=== PATIENT | male | born 2000 | race Caucasian/White ===

== ENCOUNTER 2019-05-10 15:33 | Emergency (ER) | payer OTHER, SELFPAY ==
[2019-05-10 15:35] VITALS: BP 158/95; PULSE 115; RESP 16; TEMP 36.6; O2SAT 99; BMI 37.8
--- NOTE | 2019-05-10 15:45 | EKG12_ITS ---
Test Reason : SYNCOPE Blood Pressure : / mmHG Vent. Rate : 089 BPM Atrial Rate : 089 BPM P-R Int : 136 ms QRS Dur : 082 ms QT Int : 322 ms P-R-T Axes : 070 017 034 degrees QTc Int : 391 ms Normal sinus rhythm Normal ECG Confirmed by EVARISTO JEROME ([id number]), newspaper editor MANISHA ESCUDERO ([id number]) on 05/16/2019 9:42:21 AM Referred By: YELITZA Confirmed By:EVARISTO JEROME
--- NOTE | 2019-05-10 15:46 | NURSING ---
NO OLD EKGS
--- NOTE | 2019-05-10 15:57 | ED.DCSUM_ITS ---
- ER Visit Summary Date of Service: 05/10/19 Chief Complaint: Syncope versus seizure History of Present Illness: The patient is a 18 M who tells me he had a seizure today at work. He was not doing anything strenuous when he felt faint and then hit his face on the ground. He woke up laying on the ground and noticed that his tooth was chipped. He had no chest pain or shortness of breath. Nobody witnessed this. He tells me he has a history of seizures but he takes no medications for this at home. He has not seen a neurologist in the past. He currently feels back to baseline except for some pain in his mouth where his tooth is chipped. Physical Examination: Vital signs reviewed. HEENT exam reveals a dental avulsion at tooth #8. Otherwise there is no tongue trauma. Heart is regular rate and rhythm without murmurs. Lungs are clear to auscultation. Abdomen is soft and nontender. Extremities reveal no edema. Skin exam normal. Neurologic exam normal. GCS is currently 15. Test Results: EKG is a sinus rhythm with rate of 89. No ST changes. Labs are normal. Emergency Department Course and Treatment: I feel the patient likely had a syncopal episode rather than a seizure. Nobody witnessed any tonic-clonic like seizures. From his description it sounds like he fainted. He does have a dental avulsion that will need to be followed up with a dentist. I will give him a list of dental clinics. I will give him the number of a primary care physician he can follow-up with as well. He was encouraged to increase his hydration at home. Treatment Plan: [] Disposition: Discharge Impression: Syncope, dental avulsion This note was generated with Clickt[employer] dictation software. It may contain incorrect words, spelling, and punctuation that were not noted in review of the chart prior to signing
[2019-05-10 16:31] LABS: Absolute Lymphocyte Count 1.53 X10^3/uL (0.83-4.51); Absolute Neutrophil Count 7.3 X10^3/uL (2.0-7.7); Basophil# 0.04 X10^3/uL; Basophil% 0.4 % (0-1); Eosinophil# 0.06 X10^3/uL; Eosinophils% 0.6 % (0-5); Hematocrit 43.5 % (40-54); Hemoglobin 15.9 g/dL (13.0-16.5); Lymphocyte # 1.53 X10^3/ul (4.0); Lymphocyte % 16.1 % (19-41); Mean Corp Hgb Conc 36.6 g/dL (32-36); Mean Corpuscular Hgb 31.9 pg (27.0-32.0); Mean Corpuscular Volume 87.2 fL (80-94); Mean Platelet Vol. 8.8 fl (6.2-12.0); Monocyte# 0.58 X10^3/uL; Monocyte% 6.1 % (0-10); NRBC Flagged by Analyzer 0 % (0-5); Neutrophil # 7.26 X10^3/uL (2.7-7.7); Neutrophil % 76.5 % (47-70); Platelet Count 189 K/mm3 (150-450); RBC Distribution Width CV 11.2 % (11.6-14.6); RBC Distribution Width SD 35.7 fl (35.1-43.9); Red Blood Count 4.99 M/mm3 (4.6-6.2); White Blood Count 9.5 K/mm3 (4.4-11.0)
[2019-05-10 16:49] LABS: Anion Gap 4 (5-15); BUN 22 mg/dL (7-18); BUN/Creat Ratio 18.3 RATIO (10-20); Calcium,Total 8.8 mg/dL (8.5-10.1); Chloride 107 mmol/L (98-107); EST Glomerular Filtration Rate 81 mL/min (>60); Est Glom Filt Rate - Afr Amer 98 mL/min (>60); Estimated Creatinine Clearance 69.44 ml/min; Glucose 97 mg/dL (74-106); Potassium 3.8 mmol/L (3.5-5.1); Sodium Level 140 mmol/L (136-145)
--- NOTE | 2019-05-10 16:58 | ED.DEP ---
ED Disposition - Plan for ED Patient: Disposition: Home or Assisted Living Instructions: SYNCOPE, Unk Cause Referrals: Care Physician,No Primary [Primary Care Provider] - Dom Yusuf MD [STAFF PHYSICIAN] -
[2019-05-10 17:21] VITALS: BP 130/87; PULSE 71; RESP 16; O2SAT 98
== END 2019-05-10 17:22 | disposition home or self-care (01) ==
PROVIDERS: Emergency Provider Emergency Medicine
DX: R55 Syncope and collapse (principal); S02.5XXA Fracture of tooth (traumatic), initial encounter for closed fracture; W19.XXXA Unspecified fall, initial encounter; Y93.9 Activity, unspecified; Y92.9 Unspecified place or not applicable
CPT/HCPCS: 80048; 85025; 93005; 99283; A4216

== ENCOUNTER → 2019-05-29 09:28 | Outpatient (CLI) | payer OTHER, SELFPAY ==
[2019-05-10 15:35] VITALS: BMI 37.8
--- NOTE | 2019-05-30 10:17 | EEG_ITS ---
- Electroencephalogram Date of service 05/29/2019 This is an 18 channel electroencephalogram performed utilizing the International 10-20 electrode placement protocol as well as photic stimulation, hyperventilation and EKG reference leads on this 18-year-old male with a history of spells associated with tongue biting. Background activity is 10 Hz symmetrically in the posterior leads which attenuates with eye opening. Hyperventilation is performed for 5 minutes with no lateralizing or epileptiform changes and the post hyperventilatory phase is unremarkable. Photic stimulation demonstrates a normal symmetric driving response in the posterior leads and EKG is normal sinus rhythm throughout the recording. Patient remained awake throughout the recording without lateralizing or epileptiform changes. Impression: Normal awake electroencephalogram. Dictated using [employer] software, not proofread
== END ==
PROVIDERS: Family Provider Family Medicine; PCP Family Medicine; Referring Provider Family Medicine; Visit Provider Family Medicine
DX: R56.9 Unspecified convulsions (principal)
CPT/HCPCS: 95819

== ENCOUNTER → 2019-06-19 12:05 | Outpatient (CLI) | payer OTHER, SELFPAY ==
[2019-06-19 12:07] LABS: Bacteria 0 SEEN /hpf (None Seen); Mucous, Urine 0 SEEN /hpf (<or=2+); Red Blood Cells-Urine 0 SEEN /hpf (0-5); Squamous Epithelial Cells - UA 0 SEEN /hpf (0-5); White Blood Cells 0 SEEN /hpf (0-5)
[2019-06-19 13:53] LABS: Color, Urine Yellow (Yellow); Glucose, Dipstick Normal (Normal); Ketone-Dipstick Negative (Negative); Leukocyte Esterase-Dipstick Negative /ul (Negative); Nitrite-Dipstick Negative (Negative); Occult Blood-Urine Negative /ul (Negative); Protein-Dipstick Negative (Negative); Specific Gravity, Urine 1.005 (1.002-1.030); Urine Bilirubin Dipstick Negative (Negative); Urine Clarity Clear (Clear); Urine Urobilinogen Normal (Normal)
[2019-06-19 14:06] LABS: Osmolality, Serum 293 mOsm/KG (275-295)
[2019-06-19 14:09] LABS: Osmolality, Urine 344 mOsm/KG
[2019-06-19 14:16] LABS: Anion Gap 7 (5-15); BUN 12 mg/dL (7-18); Calcium,Total 9.1 mg/dL (8.5-10.1); Chloride 108 mmol/L (98-107); Creatinine, Serum 1.09 mg/dL (0.70-1.30); EST Glomerular Filtration Rate 91 mL/min (>60); Est Glom Filt Rate - Afr Amer 110 mL/min (>60); Glucose 85 mg/dL (74-106); Potassium 4.3 mmol/L (3.5-5.1); Sodium Level 144 mmol/L (136-145)
== END ==
PROVIDERS: Family Provider Family Medicine; PCP Family Medicine; Visit Provider Family Medicine
DX: R35.8 Other polyuria (principal)
CPT/HCPCS: 36415; 80048; 81001; 83930; 83935

== ENCOUNTER 2019-09-15 23:42 | Observation (INO) | payer OTHER, SELFPAY ==
[2019-09-15 23:45] VITALS: BP 144/70; PULSE 94; RESP 16; TEMP 37.2; O2SAT 98; BMI 31.8
[2019-09-15 23:48] VITALS: PULSE 94
[2019-09-16] VITALS (10 sets, daily range): BP systolic 104–145; BP diastolic 55–76; PULSE 54–91; RESP 14–18; TEMP 36.3–36.8; O2SAT 96–100; BMI 31.2; BMI 31.3
--- NOTE | 2019-09-16 00:27 | EKG12_ITS ---
Test Reason : SEIZURE Blood Pressure : / mmHG Vent. Rate : 076 BPM Atrial Rate : 076 BPM P-R Int : 156 ms QRS Dur : 084 ms QT Int : 344 ms P-R-T Axes : 063 033 027 degrees QTc Int : 387 ms Normal sinus rhythm Nonspecific ST abnormality Abnormal ECG Confirmed by MARC YEUNG, AL ([id number]), dictionary editor TRISH FUENTES ([id number]) on 09/18/2019 12:56:13 PM Referred By: MR Confirmed By:AL TRAN MD
--- NOTE | 2019-09-16 00:27 | CT_ITS ---
STUDY: CT BRAIN WITHOUT CONTRAST REASON FOR EXAM: Male, 19 years old with seizure. Patient shielded RADIATION DOSAGE (If Supplied By Facility): CTDIvol = ( 44.99 ) mGy, DLP = ( 880.47 ) mGycm TECHNIQUE: Transaxial CT imaging of the brain was performed without administration of intravenous contrast material. Multiplanar reformations are submitted for interpretation. Individualized dose optimization techniques were used for this CT. COMPARISON: No relevant priors. FINDINGS: Normal soft tissue structures. Normal calvarium. Normal size ventricles and extra-axial spaces for the patient''s age. Normal white matter tracts of the cerebral hemispheres. Normal basal ganglia and thalami. Normal brainstem. Normal cerebellum. There is no intracranial hemorrhage. There are no findings of an acute ischemic infarction. Normal visualized paranasal sinuses. CT/Brain/Head without Contrast IMPRESSION: No CT evidence of acute intracranial hemorrhage. Electronically Signed: Milena Yusuf MD at 2:31 EST , Service support ,
[2019-09-16 00:46] LABS: Basophil# 0.03 X10^3/uL; Basophil% 0.5 % (0-1); Eosinophil# 0.15 X10^3/uL; Eosinophils% 2.6 % (0-5); Hematocrit 43.8 % (40-54); Hemoglobin 15.2 g/dL (13.0-16.5); Lymphocyte % 37.4 % (19-41); Mean Corp Hgb Conc 34.7 g/dL (32-36); Mean Corpuscular Hgb 31.1 pg (27.0-32.0); Mean Corpuscular Volume 89.6 fL (80-94); Monocyte# 0.52 X10^3/uL; Monocyte% 8.8 % (0-10); NRBC Flagged by Analyzer 0 % (0-5); Neutrophil # 2.96 X10^3/uL (2.7-7.7); Neutrophil % 50.4 % (47-70); Platelet Count 196 K/mm3 (150-450); RBC Distribution Width CV 11.9 % (11.6-14.6); RBC Distribution Width SD 38.7 fl (35.1-43.9); Red Blood Count 4.89 M/mm3 (4.6-6.2); White Blood Count 5.9 K/mm3 (4.4-11.0)
[2019-09-16] MEDS: 0.9% Normal Saline 1,000 ML 1000 ML IV (00:47)
--- NOTE | 2019-09-16 00:50 | RAD_ITS ---
STUDY: X-RAY CHEST REASON FOR EXAM: Male, 19 years old syncope and seizure. TECHNIQUE: PA and lateral views of the chest. COMPARISON: Prior comparison studies are not available for review at this time. FINDINGS: Cardiac monitoring leads are present. The lungs are clear and expanded. There is no demonstrated pleural abnormality. Normal size heart. Normal mediastinum and claudine. There is prominence of the pulmonary hilar arteries with peripheral pulmonary vascular congestion. Normal visualized aortic arch and descending thoracic aorta. Normal visualized thoracic spine. Normal visualized ribs, clavicles, and shoulders. There is no demonstrated abnormality of the visualized soft tissue structures of the upper abdomen. RAD/Chest PA and Lateral IMPRESSION: No radiographic evidence of acute cardiopulmonary disease. Electronically Signed: Milena Yusuf MD at 2:01 EST , Service support ,
[2019-09-16 00:59] LABS: Anion Gap 7 (5-15); BUN 15 mg/dL (7-18); BUN/Creat Ratio 10.9 RATIO (10-20); Calcium,Total 9.3 mg/dL (8.5-10.1); Chloride 107 mmol/L (98-107); Creatinine, Serum 1.38 mg/dL (0.70-1.30); EST Glomerular Filtration Rate 69 mL/min (>60); Est Glom Filt Rate - Afr Amer 84 mL/min (>60); Estimated Creatinine Clearance 81.92 ml/min; Glucose 98 mg/dL (74-106); Potassium 3.7 mmol/L (3.5-5.1); Sodium Level 143 mmol/L (136-145)
[2019-09-16 01:46] LABS: Lactic Acid 2.1 mmol/L (0.4-1.9)
--- NOTE | 2019-09-16 03:22 | PCM.HP.STD ---
Problem List (1) Seizure Status: Acute History of Present Illness Date of Admission: 09/16/19 Chief Complaint: seizure The patient is a 19 year old M who presented to emergency department because of acute tonic clonic movements of his extremities. He was bowling. He reported that before the tonic-clonic activity he felt like his brain paused. He fell onto a table and sustained abrasions on his neck. He bit his left tongue. The episode lasted for about 10 minutes. He denies any bowel or bladder incontinence. In March to April 2019 he had a one-time episode similar to the above. At that time he came to the hospital and follow-up with a neurologist. Reportedly it was thought that his symptoms was secondary to dehydration. He was not put on any seizure medication outpatient. Past Medical History Medical History: Medical History (Last Updated 09/16/19 @ 06:14 by Julio Hicks MD) Denies previous medical history (Chronic) Allergies No Known Allergies Allergy (Verified 09/15/19 23:51) Home Medications: Ambulatory Orders Medication Instructions Recorded NK 05/10/19 Surgical History: no surgical history Lives: Roommate Smoking Status: Former smoker Alcohol: Occasional - *Family History Paternal History Items: - - Patient's father who was present denied any medical history on his side Maternal History Items: Diabetes, Seizures Review of Systems Constitutional: Denies: Chills, Fever, Weight Change HEENT: Denies: Head Aches, Sinus Congestion, Sinus Drainage Cardiovascular: Denies: Chest Pain, Palpitations Respiratory: Denies: Cough, Shortness of breath at rest, Sputum production Gastrointestinal: Denies: Abdominal Pain, Nausea, Vomiting Genitourinary: Denies: Dysuria Musculoskeletal: Denies: Joint Pain, Joint Tenderness Skin: Denies: Rash, Wounds Neurological: Reports: Seizures. Denies: Focal weakness, Numbness, Tingling Psychiatric: Denies: Anxiety, Depression, Homicidal Ideations, Suicidal Ideations Hematologic/ Lymphatic: Denies: Easy Bruising, Easy Bleeding VTE Information - Inpt Only VTE Present on Admission: No VTE Mechan Device Prophylaxis: None VTE Pharm Prophylaxis ordered?: No Reason prophylaxis not ordered:: Treatment Not Indicated - Low risk ambulate Patient Problems: Active and Suspected Problems Seizure (Acute) - Physical Exam Vitals/I&O's: Vital Signs Temp Pulse Resp BP Pulse Ox 98.9 F 72 14 145/76 H 100 09/15/19 23:45 09/16/19 01:38 09/16/19 01:38 09/16/19 01:38 09/16/19 01:38 Oxygen Delivery Method Room Air Weight: 94.9 kg Body Mass Index (BMI) 31.8 Intake and Output for Last 24 Hours 09/14/19 09/15/19 09/16/19 23:59 23:59 23:59 Intake Total 1000 / 1000 Balance 1000 / 1000 General: Alert, Oriented x3, Cooperative HEENT: Atraumatic, PERRLA, EOMI, Normocephalic, - Oral: Ulcerations Present - Left side of tongue, - Neck: Supple, No JVD, Negative Carotid Bruits Lungs: Clear to auscultation, Normal air movement Cardiovascular: Regular rate, No murmurs Abdomen: Bowel Sounds Present, Soft, Non Tender Extremities: No edema, Capillary Refill Less than 3 Seconds Skin: - - Abrasions on neck Musculoskeletal: No Tenderness to Palpation of Joints or Extremities Neurological: Cranial nerves II-XII grossly intact Psych/Mental Status: Normal Affect, Appropriate Laboratory Results 09/15/19 00:00: WBC 5.9, RBC 4.89, Hgb 15.2, Hct 43.8, MCV 89.6, MCH 31.1, MCHC 34.7, RDW Std Deviation 38.7, RDW Coeff of Nigel 11.9, Plt Count 196, MPV 9.0, Immature Gran % (Auto) 0.300, Neut % (Auto) 50.4, Lymph % (Auto) 37.4, Pennington % (Auto) 8.8, Eos % (Auto) 2.6, Baso % (Auto) 0.5, Absolute Neuts (auto) 3.0, Absolute Lymphs (auto) 2.20, Nucleated RBC % 0 09/15/19 00:00: Sodium 143, Potassium 3.7, Chloride 107, Carbon Dioxide 29.0, Anion Gap 7, BUN 15, Creatinine 1.38 H, Estim Creat Clear Calc 81.92, Est GFR (MDRD) Af Amer 84, Est GFR (MDRD) Non-Af 69, BUN/Creatinine Ratio 10.9, Glucose 98, Calcium 9.3, Troponin I < 0.015 01/04/20 00:46: Lactic Acid 2.1 H* Assessment/Plan All Active Problems Seizure (Acute) The patient is a 19 year old M who presented to emergency department because of acute tonic clonic movements of his extremities with biting of tongue reminiscent of previous same activity concerning for probable epilepsy with acute seizure. Epilepsy of acute seizure Brain CT at the ED did not show any acute intracranial hemorrhage. We will get an MRI of the brain. Will start patient on Keppra IV. Get EEG. Consider neurology consult. Seizure Precautions. Counseled. DVT prophylaxis Low risk Ambulate Code Visit OBSV E&M: 45530 Initial observation care L2
--- NOTE | 2019-09-16 03:43 | ED.VIS.GEN ---
History of Present Illness Chief Complaint: Seizure Narrative: Patient presenting for evaluation secondary to a possible seizure. Patient apparently had an episode back in March where he had a passing out episode that was indeterminate whether it was convulsive or syncopal. He had a work-up in May that included a EEG by neurology and was thought to not have any sort of seizure type activity. Tonight the patient was bowling, he did not have any sort of specific inciting event. He states that it was not after going from sitting to standing, and was not associated with any chest pain palpitations shortness of breath or lightheadedness. Patient states that he felt as if his brain paused and then he was noticed to have a witnessed seizure event. Patient did not lose any continence of his bowel or bladder. Patient denies any pain. He denies any symptoms currently. He denies recent infectious signs or symptoms such as fever cough nausea vomiting or diarrhea. Patient denies that there is any prodromal auras or abnormal tastes. Patient does not take any [id number] medications and denies any drug use. Review of systems otherwise negative. Past Medical History - Allergies and Home Meds Allergies/Adverse Reactions: Allergies No Known Allergies Allergy (Verified 09/15/19 23:51) Primary Care Physician: Dom Umanzor MD [Primary Care Provider] - Past Medical History: None Smoking Status: Former smoker Review of Systems All systems negative except as indicated General: Denies: Chills, Fever, Sweats Eyes: Denies: Visual changes - bilaterally, Diplopia ENT: Denies: Rhinorrhea, Sore throat Cardiovascular: Denies: Chest pain, Palpitations Respiratory: Denies: Dyspnea, Cough, Dyspnea on exertion Gastrointestinal: Denies: Abdominal pain, Nausea, Vomiting, Diarrhea, Melena, Hematochezia Genitourinary: Denies: Dysuria, Hematuria, Frequency Musculoskeletal: Denies: Back pain, Extremity Pain Skin: Denies: Rash, Wounds Neurological: Reports: - - Seizure Physical Exam Vital Signs/Narrative: Vital Signs Temp Pulse Resp BP Pulse Ox 09/16/19 03:00 59 L 16 130/72 H 98 09/16/19 01:38 72 14 145/76 H 100 09/15/19 23:48 94 09/15/19 23:45 98.9 F 94 16 144/70 H 98 Inital Vital Signs reviewed: Yes General: Well nourished, Well developed, No Acute Distress Head: Normocephalic, Atraumatic Eyes: Perrl, EOMI ENT: Moist mucous membranes, No rhinorrhea Neck: - - Ecchymosis noted over the left anterior portion of the patient's neck with no evidence of stridor or carotid bruit. No evidence of expanding or underlying hematoma. Cardiovascular: Regular rate, Regular rhythm, No murmurs Respiratory: No distress, CTA bilaterally, Chest nontender Abdomen: Soft, Nontender, Nondistended, Normal bowel sounds Back: Nontender, Normal Inspection Extremities: Nontender, No edema Skin: Normal color, No rash Neurological: Alert, Oriented x3, Cranial nerves II-XII grossly intact, Normal Strength, Normal Sensation Psychological: Normal affect, Normal Mood Diagnostic/Tx/Re-eval - EKG Initial EKG Interpretation: - - Sinus rhythm at [address] segments normal T waves normal MD and QTc intervals no evidence of acute ischemia or arrhythmia. No evidence of WPW or Brugada morphology. - Medical Decision Making Patient presented with what seemed to be a possible seizure-like episode. There was no prodrome to this, and given its sudden onset I was concerned for the possibility of a seizure. Work-up was obtained on the patient. Lactic acid was found to be elevated which would be indicative of a convulsive event. CT imaging of the brain was negative. No arrhythmias on EKG or telemetry monitoring. Given the fact that the patient's most recent work-up was actually negative, I believe that he would benefit from admission to the hospital for neuroimaging and neurology consultation and likely initiation of anticonvulsants. I discussed this with the hospitalist. ED Disposition - Plan for ED Patient: Disposition: Acute Care Hospital [facility] Diagnosis: Seizure
--- NOTE | 2019-09-16 04:44 | MRI_ITS ---
STUDY: MRI BRAIN WITHOUT CONTRAST REASON FOR EXAM: Male, 19 years old. h/o seizures TECHNIQUE: Standardized multiplanar fat and water weighted pulse sequences were obtained. COMPARISON: CT FINDINGS: Normal size of the ventricles and extra-axial spaces for the patient''s age. Normal white matter tracts of the supratentorial brain. There is no evidence for recent intracranial ischemia or other cause of cytotoxic edema on diffusion weighted imaging (DWI). Normal T2* images of the brain without demonstrated susceptibility artifact. There is no demonstrated hemosiderin stain. Normal bilateral basal ganglia. Normal thalami. There is no extra-axial fluid accumulation. Normal flow voids within the major intracranial circulation suggesting patency by spin echo criteria. Normal sella turcica, pituitary gland, infundibular stalk, optic chiasm and hypothalamus. Normal tectal plate and pineal gland. Normal midbrain, kign and medulla. Normal cerebellum. Normal basal cisterns. Normal bilateral temporal bones. Normal bilateral internal auditory canals. No demonstrated orbital abnormality, within the constraints of a routine brain study. There is mild mucosal thickening of the visualized paranasal sinuses. Normal calvarium and skull base. Normal visualized soft tissue structures. Normal visualized upper cervical spine. MRI/Brain without Contrast IMPRESSION: Normal unenhanced MRI of the brain. Electronically Signed: Lamberto Blanco MD at 15:47 EST , Service support ,
[2019-09-16 04:52] LABS: Reflex Lactate? Y
[2019-09-16] MEDS: 0.9% Normal Saline 1,000 ML 100 ML IV (05:43)
[2019-09-16 06:01] LABS: Lactic Acid 0.9 mmol/L (0.4-1.9)
--- NOTE | 2019-09-16 16:09 | DCINST_ITS ---
- Discharge Diagnoses Current Active Problems: Current Active and Chronic Problems (Last Updated 09/16/19 @ 06:14 by Julio Hicks MD) Seizure (Acute) Denies previous medical history (Chronic) You will use the following diet at home:: No restrictions Your food should be the consistency of: Regular Your liquids should be the consistency of: Regular/Thin Discharge Activity: May Not Drive Return to work on:: 09/20/19 Weight Bearing Status: Full weight bearing Allergies/Adverse Reactions: Allergies No Known Allergies Allergy (Verified 09/15/19 23:51) Medications to take at Discharge levETIRAcetam tablet [Keppra tablet] 500 mg PO BID #60 tab 09/16/19 The following prescriptions were given: levETIRAcetam tablet [Keppra tablet] 500 mg PO BID #60 tab Transmission Status: Pending to [facility] #30 Primary Care Physician: Dom Umanzor MD [Primary Care Provider] - Please follow up with your Primary Care Physician in: Wednesday Test Results: Test results from this visit will be discussed in further detail at your follow- up appointment, if applicable.
--- NOTE | 2019-09-18 15:22 | DS.PCM_ITS ---
Discharge Date and Diagnosis Date of Admission: 09/16/19 Date of Discharge: 09/16/19 - Primary Discharge Diagnosis #1 generalized seizure disorder #2 elevated creatinine-etiology unclear - Secondary Discharge Diagnosis Chronic Problems (Last Updated 09/16/19 @ 06:14 by Julio Hicks MD) Denies previous medical history (Chronic) Hospital Course and Treatment Procedures: Electroencephalogram, - - MRI of the brain Summary of Care Provided: The patient is a 19 year old M seen in the emergency room at [facility] after coming in for evaluation after having what appeared to be generalized seizure activity while at a bowling alley. This was observed by 1 of the patient's friends, patient was groggy for about 10 minutes after the witnessed seizure activity. Work-up in the emergency room included labs which were unremarkable except for a creatinine of 1.38. Brain CT was unremarkable. Patient was placed into observation status on PCU, he underwent an MRI of the brain which showed no abnormality, patient also underwent an EEG-the results of the EEG was not known at this time the patient was discharged on 09/16/2019. Patient was given Keppra during his hospitalization, he was discharged home on the same medication. On 09/16/2019, patient was seen and examined and felt to be in stable condition for discharge home: On examination he appeared in good health and spirits. Vital signs as documented. Skin warm and dry and without overt rashes. Neck without JVD. Lungs clear. Heart exam notable for regular rhythm, normal sounds and absence of murmurs, rubs or gallops. Abdomen unremarkable and without evidence of organomegaly, masses, or abdominal aortic enlargement. Extremities nonedematous. Neuro: Cranial nerves II through XII are grossly intact, no focal motor deficits were noted, sensation to light touch and pinprick intact. Psych: Patient is alert and oriented x3, he does not appear anxious or depressed - Physical Exam Vitals/I&O's: Vital Signs Temp Pulse Resp BP Pulse Ox 98.3 F 91 16 104/55 L 98 09/16/19 16:52 09/16/19 16:52 09/16/19 16:52 09/16/19 16:52 09/16/19 16:52 Oxygen Delivery Method Room Air Weight: 93.3 kg Body Mass Index (BMI) 31.2 Intake and Output for Last 24 Hours 09/16/19 09/17/19 09/18/19 23:59 23:59 23:59 Intake Total 2347.5 / 2347.5 Balance 2347.5 / 2347.5 Discharge Activity: May Not Drive Return to work on:: 09/20/19 Weight Bearing Status: Full weight bearing Home Medications: Medications to take at Discharge levETIRAcetam tablet [Keppra tablet] 500 mg PO BID #60 tab 09/16/19 Following Prescrptions Were Given to Patient: levETIRAcetam tablet [Keppra tablet] 500 mg PO BID #60 tab Transmission Status: Received by [facility] #30 Primary Care Physician: Dom Umanzor MD [Primary Care Provider] - Please follow up with your Primary Care Physician in: Wednesday Disposition: Home Minutes spent on discharge:: 30 Patient Condition:: Stable Medical Necessity - Tobacco Use Smoking Status: Former smoker Meaningful Use Info Meaningful Use Diagnoses (Choose all that apply): None applicable Code Visit OBSV E&M: 78122 Observ/hosp same date L3
== END 2019-09-16 16:21 | disposition home or self-care (01) ==
LOC: ED 09-16 03:07 → PCU 09-16 03:45
PROVIDERS: Admitting Provider Hospitalist; Emergency Provider Emergency Medicine; Family Provider Family Medicine; PCP Family Medicine; Visit Provider Internal Medicine
DX: G40.409 Other generalized epilepsy and epileptic syndromes, not intractable, without status epilepticus (principal); R94.4 Abnormal results of kidney function studies; S10.91XA Abrasion of unspecified part of neck, initial encounter; W18.39XA Other fall on same level, initial encounter; Y93.54 Activity, bowling; Y92.9 Unspecified place or not applicable; Z87.891 Personal history of nicotine dependence
CPT/HCPCS: 36415; 70450; 70551; 71046; 80048; 83605; 84484; 85025; 93005; 95819; 96361; 96374; 99218; 99285; J7030; A4216; G0378

== ENCOUNTER → 2019-09-18 12:32 | Outpatient (CLI) | payer OTHER, SELFPAY ==
[2019-09-16 04:31] VITALS: BMI 31.2
[2019-09-18 14:18] LABS: Anion Gap 5 (5-15); BUN 13 mg/dL (7-18); BUN/Creat Ratio 12.9 RATIO (10-20); Calcium,Total 8.9 mg/dL (8.5-10.1); Chloride 106 mmol/L (98-107); Creatinine, Serum 1.01 mg/dL (0.70-1.30); EST Glomerular Filtration Rate 99 mL/min (>60); Est Glom Filt Rate - Afr Amer 120 mL/min (>60); Glucose 77 mg/dL (74-106); Potassium 3.6 mmol/L (3.5-5.1); Sodium Level 139 mmol/L (136-145)
== END ==
PROVIDERS: Family Provider Family Medicine; PCP Family Medicine; Visit Provider Family Medicine
DX: R79.89 Other specified abnormal findings of blood chemistry (principal)
CPT/HCPCS: 36415; 80048

== ENCOUNTER → 2019-12-18 11:11 | Outpatient (CLI) | payer OTHER, SELFPAY ==
[2019-09-16 04:31] VITALS: BMI 31.2
[2019-12-18 12:15] LABS: Absolute Lymphocyte Count 1.83 X10^3/uL (0.83-4.51); Absolute Neutrophil Count 2.9 X10^3/uL (2.0-7.7); Basophil# 0.04 X10^3/uL; Basophil% 0.8 % (0-1); Eosinophil# 0.11 X10^3/uL; Eosinophils% 2.1 % (0-5); Hemoglobin 16.2 g/dL (13.0-16.5); Lymphocyte # 1.83 X10^3/ul (4.0); Lymphocyte % 35.3 % (19-41); Mean Corp Hgb Conc 35.2 g/dL (32-36); Mean Corpuscular Hgb 30.8 pg (27.0-32.0); Mean Corpuscular Volume 87.5 fL (80-94); Mean Platelet Vol. 9.1 fl (6.2-12.0); Monocyte# 0.32 X10^3/uL; Monocyte% 6.2 % (0-10); NRBC Flagged by Analyzer 0 % (0-5); Neutrophil # 2.86 X10^3/uL (2.7-7.7); Neutrophil % 55.2 % (47-70); Platelet Count 204 K/mm3 (150-450); RBC Distribution Width CV 11.9 % (11.6-14.6); RBC Distribution Width SD 37.9 fl (35.1-43.9); Red Blood Count 5.26 M/mm3 (4.6-6.2); White Blood Count 5.2 K/mm3 (4.4-11.0)
[2019-12-18 15:06] LABS: ALB/GLOB Ratio 1.3 RATIO (0.9-2.4); AST(SGOT) 18 U/L (15-37); Alanine Aminotransfer ALT/SGPT 25 U/L (16-61); Albumin, Serum 4.3 g/dL (3.2-5.0); Alkaline Phosphatase 92 U/L (45-117); Anion Gap 6 (5-15); BUN 14 mg/dL (7-18); Calcium,Total 9.2 mg/dL (8.5-10.1); Chloride 107 mmol/L (98-107); Creatinine, Serum 1.17 mg/dL (0.70-1.30); EST Glomerular Filtration Rate 83 mL/min (>60); Est Glom Filt Rate - Afr Amer 101 mL/min (>60); Globulin 3.3 g/dL (2.2-4.2); Glucose 98 mg/dL (74-106); Potassium 4.1 mmol/L (3.5-5.1); Protein, Total 7.6 g/dL (6.4-8.2); Sodium Level 140 mmol/L (136-145)
== END ==
PROVIDERS: PCP Family Medicine; Referring Provider Family Medicine; Visit Provider Family Medicine
DX: R56.9 Unspecified convulsions (principal)
CPT/HCPCS: 36415; 80053; 82140; 85025

== ENCOUNTER → 2021-01-20 16:22 | Outpatient (CLI) | payer OTHER, SELFPAY ==
[2019-09-16 04:31] VITALS: BMI 31.2
[2021-01-20 17:35] LABS: Hematocrit 45.1 % (40-54); Hemoglobin 15.4 g/dL (13.0-16.5); Mean Corp Hgb Conc 34.1 g/dL (32-36); Mean Corpuscular Hgb 29.9 pg (27.0-32.0); Mean Corpuscular Volume 87.6 fL (80-94); Platelet Count 191 K/mm3 (150-450); RBC Distribution Width CV 11.7 % (11.6-14.6); RBC Distribution Width SD 37.6 fl (35.1-43.9); Red Blood Count 5.15 M/mm3 (4.6-6.2); White Blood Count 8.6 K/mm3 (4.4-11.0)
[2021-01-20 18:03] LABS: Ammonia < 10.0 umol/L (11-32)
[2021-01-20 18:05] LABS: ALB/GLOB Ratio 1.3 RATIO (0.9-2.4); AST(SGOT) 18 U/L (15-37); Alanine Aminotransfer ALT/SGPT 25 U/L (16-61); Albumin, Serum 4.3 g/dL (3.2-5.0); Alkaline Phosphatase 81 U/L (45-117); Anion Gap 5 (5-15); BUN 22 mg/dL (7-18); BUN/Creat Ratio 19.5 RATIO (10-20); Chloride 102 mmol/L (98-107); Creatinine, Serum 1.13 mg/dL (0.70-1.30); EST Glomerular Filtration Rate 86 mL/min (>60); Est Glom Filt Rate - Afr Amer 104 mL/min (>60); Globulin 3.2 g/dL (2.2-4.2); Glucose 81 mg/dL (74-106); Potassium 3.9 mmol/L (3.5-5.1); Protein, Total 7.5 g/dL (6.4-8.2); Sodium Level 139 mmol/L (136-145)
== END ==
LOC: MFPLAB 16:47 → LAB 16:47
PROVIDERS: PCP Family Medicine; Referring Provider Family Medicine; Visit Provider Family Medicine
DX: R56.9 Unspecified convulsions (principal)
CPT/HCPCS: 36415; 80053; 82140; 85027

== ENCOUNTER 2021-10-09 11:02 | Day surgery (SDC) | payer OTHER, SELFPAY ==
[2021-10-09] VITALS (9 sets, daily range): BP systolic 113–172; BP diastolic 67–98; PULSE 71–98; RESP 16; TEMP 36.6–37.2; O2SAT 98–100; BMI 29.1
[2021-10-09] MEDS: Lactated Ringers 1,000 ML 15 ML IV (11:50)
[2021-10-09 12:10] LABS: Partial Thromboplast Time 28.8 Seconds (24.1-36.2)
--- NOTE | 2021-10-09 12:49 | SUR.PREOP ---
pt given update about surgery delay. he denies needs
--- NOTE | 2021-10-09 14:39 | EKG12_ITS ---
Test Reason : Blood Pressure : / mmHG Vent. Rate : 068 BPM Atrial Rate : 068 BPM P-R Int : 176 ms QRS Dur : 084 ms QT Int : 370 ms P-R-T Axes : 069 032 047 degrees QTc Int : 393 ms Normal sinus rhythm Normal ECG When compared with ECG of 16-SEP-2019 00:37, No significant change was found Confirmed by MARC YEUNG, AL ([id number]), offline editor TRISH FUENTES ([id number]) on 10/14/2021 8:52:22 AM Referred By: Alexis Quan Confirmed By:AL TRAN MD
[2021-10-09] MEDS: Cefazolin 2 GM in 0.9% Normal Saline 100 ML IV (14:53)
--- NOTE | 2021-10-09 16:37 | PCM.DC ---
Discharge Instructions Follow Up Care Test Results: Test results from this visit will be discussed in further detail at your follow-up appointment, if applicable. Discharge Plan Admission Attending Provider: Alexis Quan Primary Care Provider: Care Physician,No Primary Instructions Additional Instructions / Restrictions: Follow preprinted instructions from your surgeon's office. Discharge Orders/Prescriptions Prescriptions: Continued levetiracetam 500 MG tablet 500 mg PO DAILY RF: 0 Referrals / Follow Up: Alexis Quan DO [STAFF PHYSICIAN] - Within 2 Weeks Care Physician,No Primary [Primary Care Provider] - Disposition Disposition (needs filled in before D/C Order can be placed): Home, Self Care
--- NOTE | 2021-10-09 16:50 | OP.PCM_ITS ---
Report of Operation Date of Procedure: 10/09/21 Description of Surgical Findings:: Preoperative diagnosis: 1. Left knee anterior cruciate ligament rupture 2. Left knee Posterior medial meniscus RAMP lesion Postoperative diagnosis: 1. Left knee anterior cruciate ligament rupture 2. Left knee Posterior medial meniscus RAMP lesion - healed Procedure: Diagnostic and operative left knee arthroscopy with quadriceps autograft anterior cruciate ligament reconstruction Primary Surgeon: Alexis Quan DO Supervisor Dyer: Staci Blackburn PA-C Anesthesia: General LMA Anesthesiologist: Dr. Filomena Spring CRNA Complications: None apparent Estimated blood loss: 50 cc IV fluids: Per anesthesia record Implants: Arthrex tight rope femoral fixation with ABS button tibial sided fixation Intraoperative findings: Healed posterior medial meniscus ramp lesion Mid substance complete ACL rupture Preoperative indications: This is an otherwise healthy 21-year-old male seen in the outpatient setting diagnosed with a right knee anterior cruciate ligament rupture. He sustained injury playing basketball approximately 2 months ago. MRI confirmed the diagnosis. He rehabbed his knee and regained full motion and excellent strength. He did experience considerable instability and avoidance of specific activities after rehab. Injury to the posterior lateral corner was noted on MRI, but his exam demonstrated stability across the posterior lateral corner. There was also a ramp lesion noted the posterior medial meniscus, which appeared healed on MRI. Operative intervention in the form of left knee anterior cruciate ligament reconstruction was recommended. We discussed graft options. We settled on a quadriceps autograft. The risks, benefits, alternatives to the procedure was reviewed with the patient at length. Risks included but were not limited to bleeding, wound complications, infection, loss of life or limb, need for additional surgery, continued instability, persistent pain, posttraumatic arthritis, stiffness, difficulty returning to sport, risk of anesthesia, DVT or PE, neurovascular injury. Patient expressed understanding his risks and wished to proceed with surgery. Informed consent obtained in the office. Description of procedure: Patient was identified in preoperative holding area by name, medical record number, and date of . The operative extremity was marked. Informed consent confirmed with the patient. All questions were answered to patient satisfaction. At time of his procedure, patient was brought to the operative suite and positioned supine on a standard operating table. All bony prominences were well-padded. General anesthesia was induced and laryngeal mask airway placed. After securing the tube, I placed a well-padded pneumatic tourniquet on the upper thigh of the operative extremity. I first examined the leg under anesthesia. There was a positive pivot shift and Shira. We then positioned the operative extremity in a circumferential arthroscopic leg miguel. A well- leg miguel was placed on the patient's nonoperative thigh. We then dropped the foot of the bed 90 degrees. We then prepped and draped the operative lower extremity in a normal, sterile orthopedic fashion. We performed a timeout with all parties in attendance in agreement with the side, site, operation to be performed. No concerns were voiced and we elected to proceed with surgery. 2 g Ancef was administered for antibiotic prophylaxis prior to the incision by the anesthesia staff. Given the positive provocative findings and positive MRI findings consistent with ACL rupture, I elected to harvest the graft first. I planned a midline incision overlying the quadriceps tendon approximately 5 cm in length. Skin was sharply incised with a 15 blade scalpel through skin and subcutaneous tissue. Subcutaneous fat was cleared exposing the peritenon of the quadriceps. The quadriceps peritenon was carefully elevated and dissected free from the underlying tendon, in line with the skin incision. I then identified the insertion of the tendon on the superior pole of the patella. I utilized the parallel cutting guide 9 mm in diameter to establish the width of our tendon harvest. I sharply dissected the insertion off of the patella. I elevated a partial thickness graft. After gaining approximately 4 cm in length, I performed a whipstitch for fixation into the tendon with a FiberWire suture. I then utilized a leahy elevator and scalpel to continue to elevate the graft. I was able to elevate the tendon graft free to a length of 68 millimeters. This was cut sharply with the cigar cutting instrument from [employer]. The void in the quadriceps was then closed with 0 Vicryl suture. Peritenon was closed with 2-0 Vicryl suture in watertight fashion. The graft was moved to the back table where my assistant golf professional, Mrs. Blackburn, began to prepare the graft. She prepared a standard all inside fixation with a tight rope attachment on the femoral side. The graft was pretensioned. After the graft was prepared, it was left under tension and kept fresh with a moist sponge. A 10 mm was the final graft diameter uniformly for both the femoral and tibial sides. During time of graft preparation, I commenced diagnostic and operative arthroscopy. Establish a standard anterolateral portal with an 11 blade scalpel. Blunt tipped trocar and cannula was inserted through this portal as the knee was brought into full extension into the patellofemoral joint. Trocar was removed and arthroscope introduced. Examination of the knee revealed a healed posterior medial meniscus ramp lesion visualized through the notch. Articular cartilage was pristine as well as other meniscal anatomy. The remnants of the ACL was then encountered. ACL rupture was confirmed. I resected the remaining portion of the ACL with a radial resector, marking the footprints with the radiofrequency ablator. I then performed a notchplasty in standard fashion with a 5.5 mm bur. I then introduced the flip cutter drill guide through the anterior lateral portal and the camera was moved to the anterior medial portal. I positioned the drill guide to allow for 2 mm of back wall at approximately the 10:30 position on the lateral wall of the notch. I made a stab incision along the lateral thigh in line with the planned trajectory of the flip cutter. Skin, subcutaneous tissue, and IT band were sharply incised and dilated. Drill guide and drill were then passed down to the level of the lateral femoral cortex. We drilled through the lateral cortex into the intercondylar notch at the planned trajectory location. The flip cutter was then deployed to a diameter of 10 mm. The flip cutter was then used to retrograde drill the femoral socket to a depth of 30 mm. Flip cutter was then retracted and pulled from the wound. A fiber stick was then introduced through the femoral socket. The fiber wire was then retrieved out the anterior lateral portal and luggage tagged. Loose pieces of bone was debrided with a radial resector from the knee. I then switched the camera to the lateral portal. I placed the tibial drill guide through the anterior medial portal planning be tunnel placement at the [place] footprint of the ACL. I sharply incised the skin with an 11 blade scalpel through skin and subcutaneous tissues over the anterior medial tibia with planned trajectory of the drill course. I then drilled through the anterior medial tibia into the joint at the planned trajectory. I deployed the flip cutter to a diameter of 10 mm and drilled retrograde fashion for the tibial socket, approximately 30 mm in length. I then reversed the flip cutter to 3.5 mm and removed from the joint. I placed a tiger stick through the tibial tunnel and retrieved out the anterior medial portal. I then brought the graft to the surgical field. I retrieved the loop end of the femoral side shuttling suture through the anterior medial portal and attached to the suture ends of the femoral side button of the graft. We then passed the sutures and button through the femoral tunnel. The tight rope button was then deployed and engaged the lateral femoral cortex. We then sequentially tightened the graft to dock into the femoral tunnel. I then retrieved the passing suture for the tibial tunnel at the anteromedial portal and utilized it to pass the tibial side of the graft/sutures. Sutures were then retrieved out the tibial tunnel. I placed an ABS button through the tight rope mechanism is sequentially tightened to appropriate, maximum tension in full extension while my assistant golf professional applied a posterior drawer to the tibia. The knee was then cycled 25 times to prevent creep. Final tightening was performed. I tied 3 half hitch knots over the tibial button. Sutures were then cut. The knee was thoroughly debrided lavage of any loose pieces of bone or articular cartilage. Final images were obtained. Quadriceps autograft harvest site was closed with buried 3-0 Vicryl suture in the dermis and a running 4-0 Monocryl subcuticular stitch was utilized to reapproximate the skin. Steri-Strips were then applied. Portal sites and stab incisions were closed with [id number] 4-0 nylon suture. Sterile compression dressings were applied. The tourniquet was never inflated throughout the entirety of the case. Need for skilled assistant golf professional: Staci Blackburn PA-C was critical to the outcome of the case. During the course of the procedure the physician assistant golf professional played a vital role. Her intimate knowledge of my steps in the procedure aided in safe and expedient completion of the procedure. The PA played a vital role in positioning particularly in obtaining the appropriate positioning. She was able to prepare the autograft on the back table during time of my notchplasty which expedited the case immensely. The PA was also vital in proper tunnel placement and drilling. She also participated in directly supervised wound closure. Post Operative Plan: Weightbearing: Weightbearing as tolerated without a brace to the left lower extremity. Patient may receive a block in the PACU per anesthesia. He will be nonweightbearing to the operative extremity until the block has resolved. Antibiotics: 2 g Ancef IV prior to incision DVT Prophylaxis: 81 mg aspirin twice daily to start tomorrow for 2 weeks Abraham: None Dressing: Maintain surgical dressing x2 days. Okay to shower dressing on started on day 2 X-Rays: 2 weeks postop in the office Pain Medication: Oxycodone prescription provided in the office Therapy: Physical therapy to initiate in the next 5 days Follow-up: 2 weeks post-operatively with me in the office
[2021-10-09] MEDS: oxyCODONE 5 MG Tablet 10 MG PO (18:00)
== END 2021-10-09 23:59 | disposition home or self-care (01) ==
LOC: SDC 11:06 → AC 11:07
PROVIDERS: Referring Provider Student in an Organized Health Care Education/Training Program; Visit Provider Student in an Organized Health Care Education/Training Program
PROC: (CPT 29888; principal; 2021-10-09 12:05)
DX: S83.512A Sprain of anterior cruciate ligament of left knee, initial encounter (principal); G40.909 Epilepsy, unspecified, not intractable, without status epilepticus; S83.242A Other tear of medial meniscus, current injury, left knee, initial encounter; W19.XXXA Unspecified fall, initial encounter; Y93.67 Activity, basketball; Y99.8 Other external cause status; E66.3 Overweight; Z71.3 Dietary counseling and surveillance; Z68.29 Body mass index [BMI] 29.0-29.9, adult; Z79.899 Other long term (current) drug therapy; Z87.891 Personal history of nicotine dependence; Z20.822 Contact with and (suspected) exposure to COVID-19
CPT/HCPCS: 29888; 01400; 64448; 85730; 87426; 93005; C1713; J7120; J2405

== ENCOUNTER → 2022-04-02 | Outpatient (CLI) | payer OTHER, SELFPAY ==
[2022-04-02 12:17] LABS: Absolute Lymphocyte Count 1.58 X10^3/uL (0.83-4.51); Absolute Neutrophil Count 3.2 X10^3/uL (2.0-7.7); Basophil# 0.02 X10^3/uL; Basophil% 0.4 % (0-1); Eosinophil# 0.11 X10^3/uL; Hematocrit 46.3 % (40-54); Hemoglobin 15.9 g/dL (13.0-16.5); Lymphocyte # 1.58 X10^3/ul (0.83-4.51); Lymphocyte % 29.4 % (19-41); Mean Corp Hgb Conc 34.3 g/dL (32-36); Mean Corpuscular Hgb 29.6 pg (27.0-32.0); Mean Corpuscular Volume 86.2 fL (80-94); Mean Platelet Vol. 9.7 fl (6.2-12.0); Monocyte# 0.43 X10^3/uL; NRBC Flagged by Analyzer 0 % (0-5); Neutrophil # 3.23 X10^3/uL (2.7-7.7); Platelet Count 231 K/mm3 (150-450); RBC Distribution Width CV 12.4 % (11.6-14.6); RBC Distribution Width SD 38.3 fl (35.1-43.9); Red Blood Count 5.37 M/mm3 (4.6-6.2); White Blood Count 5.4 K/mm3 (4.4-11.0)
[2022-04-02 12:47] LABS: ALB/GLOB Ratio 1.3 RATIO (0.9-2.4); AST(SGOT) 22 U/L (15-37); Alanine Aminotransfer ALT/SGPT 24 U/L (16-61); Albumin, Serum 4.3 g/dL (3.2-5.0); Alkaline Phosphatase 67 U/L (45-117); Anion Gap 6 (5-15); BUN 15 mg/dL (7-18); BUN/Creat Ratio 16.7 RATIO (10-20); Calcium,Total 9.4 mg/dL (8.5-10.1); Chloride 107 mmol/L (98-107); Cholesterol 142 mg/dL (200); EST Glomerular Filtration Rate 111 mL/min (>60); Est Glom Filt Rate - Afr Amer 134 mL/min (>60); Globulin 3.3 g/dL (2.2-4.2); Glucose 79 mg/dL (74-106); High Density Lipoprotein 44 mg/dL; Potassium 4.3 mmol/L (3.5-5.1); Protein, Total 7.6 g/dL (6.4-8.2); Sodium Level 140 mmol/L (136-145); Triglycerides 103 mg/dL; Very Low Density Lipoprotein 21 mg/dL (5-40)
== END | disposition home or self-care (01) ==
LOC: MFPLAB 09:58
PROVIDERS: PCP Family Medicine; Referring Provider Family Medicine; Visit Provider Family Medicine
DX: R56.9 Unspecified convulsions (principal); E66.3 Overweight
CPT/HCPCS: 36415; 80053; 80061; 85025

== ENCOUNTER → 2022-12-23 | Outpatient (CLI) | payer SELFPAY ==
[2022-12-26 14:03] LABS: KEPPRA (LEVETIRACETAM) 4.3 ug/mL (10.0-40.0)
== END | disposition home or self-care (01) ==
LOC: MFPLAB 16:24
PROVIDERS: PCP Family Medicine; Referring Provider Family Medicine; Visit Provider Family Medicine
DX: R56.9 Unspecified convulsions (principal)
CPT/HCPCS: 36415; 80177

== ENCOUNTER → 2023-03-31 | Outpatient (CLI) | payer SELFPAY ==
[2023-04-02 11:09] LABS: KEPPRA (LEVETIRACETAM) 14.5 ug/mL (10.0-40.0)
== END | disposition home or self-care (01) ==
PROVIDERS: PCP Family Medicine; Visit Provider Family Medicine
DX: R56.9 Unspecified convulsions (principal)
CPT/HCPCS: 36415; 80177

== ENCOUNTER → 2024-08-14 | Outpatient (CLI) | payer SELFPAY ==
[2024-08-16 16:10] LABS: KEPPRA (LEVETIRACETAM) 20.4 ug/mL (10.0-40.0)
== END | disposition home or self-care (01) ==
PROVIDERS: PCP Family Medicine; Visit Provider Family Medicine
DX: R56.9 Unspecified convulsions (principal)
CPT/HCPCS: 36415; 80177

== ENCOUNTER → 2025-08-13 | Outpatient (CLI) | payer SELFPAY ==
--- OUTSIDE RECORDS SUMMARY | 2025-08-13 08:51 | XMS RPT_ITS | CCD ---
Demographics Address [address] [place] [address] Preferred Language en Marital Status Single Mosque Affiliation Unknown Race White Ethnic Group Not or Lati no Author Organization [facility] Care Team Providers Care Pharmacy Cashier Name Role Phone Lima Daniels Attending Unavailable Lima Daniels Primary Care Unavailable Medications Current Medications Medication Drug Class(es) Dates Sig (Normalized) Sig (Original) levETIRAcetam 500 mg oral tablet (2 sources) Start: 09-26-2021 take 500 mg by mouth once daily Levetiracetam Active 500 MG PO DAILY September 26, 2021 9:24am Start: 09-16-2019 End: 09-26-2021 take 500 mg by mouth twice daily Levetiracetam Discontinued 500 MG PO TWICE A DAY 60 September 16, 2019 1:00am September 26, 2021 9:24am Problems Problem Classification Problem Date Documented Da te Episodic/Chronic Epilepsy; convulsions (2 sources) Seizure; Translations: [Unspecified convulsions] Onset: 09-14-2024 Episodic Unclassified (1 source) Denies previous medical history Results Test Name Value Interpretation Reference Range Facil ity KEPPRA (LEVETIRACETAM)on KEPPRA 20.4 ug/mL Normal 10.0-40.0 [facility] Comment on above: Result Comment: Perf ormed at: [facility] [address] [id number] Airplane Navigator: Sheri Montaño MD, Phone: [phone] Performed By: #### L 3310.0000 #### [facility] [address] [place], [address] Absolute lymphocyte counton 04-02-2022 Lymphocytes Auto (Unsp spec) [#/Vol] 1.58 10*3/uL 0.83-4.51 [facility] Work Phone: Basophil percentageon 2021 Basophils/100 WBC (Bld) 0.4 % 0-1 [facility] Work Phone: Bilirubin [Mass/Vol] 0.70 mg/dL 0.20-1.00 [facility] Work Phone: Comment on above: For patients on eltr ombopag therapy, use of Dimension Doole TBIL is not recommended. Chloride [Moles/Vol] 107 mmol/L 98-107 [facility] Work Phone: Cholesterol [Mass/Vol] 142 mg/dL <200 [facility] Work Phone: Comment on above: <200 mg/dL Desirable 200-240 mg/dL Borderline >240 mg/dL High Risk Eosinophils/100 WBC (Bld) 2.0 % 0-5 [facility] Work Phone: Glucose [Mass/Vol] 79 mg/dL 74-106 [facility] Work Phone: Neutrophils (Bld) [#/Vol] 3.2 10*3/uL 2.0-7.7 [facility] Work Phone: Neutrophils/100 WBC (Bld) 60.0 % 47-70 [facility] Work Phone: Potassium [Moles/Vol] 4.3 mmol/L 3.5-5.1 [facility] Work Phone: Comment on above: Slight Hemolysis, Re sult may be falsely increased. Protein [Mass/Vol] 7.6 g/dL 6.4-8.2 [facility] Work Phone: Sodium [Moles/Vol] 140 mmol/L 136-145 [facility] Work Phone: Triglyceride [Mass/Vol] 103 mg/dL <199 [facility] Work Phone: Comment on above: The drugs N-Acetylcy steine and Metamizole may falsely depress this assay.Serum Triglycerides Reference Interval Normal <150 mg/dL Borderline high 150 - 199 mg/dL High 200 - 499 mg/dL Very High > or = 500 mg/dL WBC (Bld) [#/Vol] 5.4 10*3/uL 4.4-11.0 [facility] Work Phone: Blood erythrocytes count (nu mber/volume)on 04-02-2022 RBC (Bld) [#/Vol] 5.37 10*6/uL 4.6-6.2 [facility]: Blood hemoglobin measurement (mass/volume)on 04-02-2022 Hemoglobin (Bld) [Mass/Vol] 15.9 g/dL 13.0-16.5 [facility] Work Phone: Blood lymphocytes/100 leukoc yteson 04-02-2022 Lymphocytes/100 WBC (Bld) 29.4 % 19-41 [facility] Work Phone: Blood monocytes/100 leukocyt eson 04-02-2022 Monocytes/100 WBC (Bld) 8.0 % 0-10 [facility] Work Phone: Blood platelet mean volumeon 04-02-2022 Platelet mean volume (Bld) [Entitic vol] 9.7 fL 6.2-12.0 [facility] Work Phone: Determination of erythrocyte mean corpuscular volume (MCV)on 04-02-2022 MCV (RBC) [Entitic vol] 86.2 fL 80-94 [facility] Work Phone: Hematocrit Auto (Bld) [Volum e fraction]on 04-02-2022 Hematocrit (Bld) [Volume fraction] 46.3 % 40-54 [facility] Work Phone: Laboratory - Chemistry and C hemistry - challengeon 04-02-2022 ALP [Catalytic activity/Vol] 67 U/L 45-117 [facility] Work Phone: ALT [Catalytic activity/Vol] 24 U/L 16-61 [facility] Work Phone: CO2 [Moles/Vol] 27.0 mmol/L 21.0-32.0 [facility] Work Phone: Globulin (S) [Mass/Vol] 3.3 g/dL 2.2-4.2 [facility] Work Phone: Urea nitrogen/Creatinine [Mass ratio] 16.7 mg/mg 10-20 [facility] Work Phone: Laboratory - Hematology and Cell countson 04-02-2022 Erythrocyte distribution width (RBC) [Entitic vol] 38.3 fL 35.1-43.9 [facility] Work Phone: Erythrocyte distribution width (RBC) [Ratio] 12.4 % 11.6-14.6 [facility] Work Phone: Immature granulocytes/100 WBC (Bld) 0.200 % 0.0-0.9 [facility] Work Phone: Comment on above: IG% - Immature Granu locytes (promyelocytes, myelocytes and metamyelocytes) > 1% indicates that a LEFT SHIFT is Present. MCH (RBC) [Entitic mass] 29.6 pg 27.0-32.0 [facility] Work Phone: Nucleated RBC/100 WBC (Bld) [Ratio] 0 % 0-5 [facility] Work Phone: MCHC Auto (RBC) [Mass/Vol]on 04-02-2022 MCHC (RBC) [Mass/Vol] 34.3 g/dL 32-36 [facility] Work Phone: No Panel Informationon 04-02 Estimated GFR (MDRD) Amer 134 mL/min >60 [facility] Work Phone: Comment on above: GFR Calc Estimated GFR (MDRD) Non-Af Amer 111 mL/min >60 [facility] Work Phone: Comment on above: Non- GFR Calc Platelets bldon 04-02-2022 Platelets (Bld) [#/Vol] 231 10*3/uL 150-450 [facility] Work Phone: Serum or plasma albumin jordana urement (mass/volume)on 04-02-2022 Albumin [Mass/Vol] 4.3 g/dL 3.2-5.0 [facility] Work Phone: Serum or plasma albumin/glob ulin mass ratioon 04-02-2022 Albumin/Globulin [Mass ratio] 1.3 {ratio} 0.9-2.4 [facility] Work Phone: Serum or plasma calcium jordana urement (mass/volume)on 04-02-2022 Calcium [Mass/Vol] 9.4 mg/dL 8.5-10.1 [facility] Work Phone: Serum or plasma cholesterol in HDL measurement (mass/volume)on 04-02-2022 Cholesterol in HDL [Mass/Vol] 44 mg/dL >40 [facility] Work Phone: Comment on above: The drugs N-Acetylcy steine and Metamizole may falsely depress this assay. Reference Range HDL <40 mg/dL Low HDL Cholesterol HDL >or= 60 mg/dL High HDL Cholesterol Serum or plasma cholesterol in VLDL measurement (mass/volume)on 04-02-2022 Cholesterol in VLDL [Mass/Vol] 21 mg/dL 5-40 [facility] Work Phone: Serum or plasma creatinine m easurement (mass/volume)on 04-02-2022 Creatinine [Mass/Vol] 0.90 mg/dL 0.70-1.30 [facility] Work Phone: Comment on above: The validity of the calculated GFR & GFRAA in patients over 70 years has not been determined. Clinical correlation is essential. Serum or plasma low density lipoprotein (LDL) cholesterol measurement (mass/volume)on 04-02-2022 Cholesterol in LDL [Mass/Vol] 77 mg/dL 0-130 [facility] Work Phone: Serum or plasma urea nitroge n measurement (mass/volume)on 04-02-2022 Urea nitrogen [Mass/Vol] 15 mg/dL 7-18 [facility] Work Phone: Thin prep Papanicolaou smear with manual screeningon 04-02-2022 Thin prep Papanicolaou smear with manual screening 22 U/L 15-37 [facility] Work Phone: Comment on above: Slight Hemolysis, Re sult may be falsely increased. Thin prep Papanicolaou smear with manual screening 6 5-15 [facility] Work Phone: Encounters Encounter Date Encounter Type Care Provider Facility Start: 08-14-2024 End: 08-14-2024 ambulatory Chalon Jeremiah Facility:[facility] Start: 04-02-2022 End: 04-02-2022 Patient encounter procedure [facility] Payers Date Payer Category Payer Self-pay [id number] Unknown SELF PAY INSURANCE [id number] Unknown SELF PAY INSURANCE [id number] Unknown [id number] Social History Date Type Detail Facility Start: 09-26-2021 Tobacco smoking stat [facility] Unknown if ever smoked [facility] Work Phone: Start: 09-16-2019 Occasional [facility] Work Phone: Start: 09-16-2019 Roommate [facility] Work Phone: Start: 2000 Sex Assigned At Male W [facility] Work Phone: Medical Equipment Procedure Code Equipment Code Equipment Origin al Text Equipment Identifier Dates Arthroscopy, knee, with meniscectomy ALLOGRAFT GRAFTLINK CONVENIENC FDA Start: 10-09-2021 Arthroscopy, knee, with meniscectomy SUTURETAPE, FIBER 2 FDA Start: 10-09-2021 Arthroscopy, knee, with meniscectomy T ROPE,FEM W FIBERTAG FDA Start: 10-09-2021 Arthroscopy, knee, with meniscectomy T ROPE,TIB ATTACH BUTTON FDA Start: 10-09-2021 Evaluation note Note Date & Type Note Facility Evaluation note No assessment information availa toyin [facility] Work Phone: Family History No Family History Records Found Relationship Condition Age at Onset Recorded Date/T myra Unknown Family History?- Unknown September 7:17am Family History?Diabetes, Seizures Unknown September 16, 2019 7:17am Advance Directives No Advanced Directives Records Found Advance Directive Response Recorded Date/ Time Living Will No September 26 9:26am Power of Pharmacy Director No September 26, 2021 9:26am Summary Purpose Additional Source Comments Goals (unrecognized section and content) Goals may be documented in a n alternate section (unrecognized sect ion and content) No Status Records Found INFORMATION SOURCE (unrecogn ized section and content) DATE CREATED AUTHOR 09/15/2024 [facility] FOR RECORDS PERTAINING TO PATIENTS WHO ARE OR HAVE BEEN ENROLLED IN A CHEMICAL DEPENDENCY/SUBSTANCEABUSE PROGRAM, SOME INFORMATION MAY BE OMITTED. This clinical summary was aggregated from multiple sources. Caution should be exercised in using it in the provision of clinical care. This summary normalizes information from multiple sources, and as a consequence, information in this document may materially change the coding, format and clinical context of patient data. In addition, data may be omitted in some cases. CLINICAL DECISIONS SHOULD BE BASED ON THE PRIMARY CLINICAL RECORDS. [employer] [facility]. provides no warranty or guarantee of the accuracy or completeness of information in this document.
[2025-08-13 10:54] LABS: AST(SGOT) 31 U/L (<=37); Alanine Aminotransfer ALT/SGPT 36 U/L (<=46); Albumin, Serum 4.6 g/dL (3.5-5.0); Alkaline Phosphatase 45 U/L (40-129); Anion Gap 10 (5-15); BUN 15 mg/dL (4-19); BUN/Creat Ratio 14.2 RATIO (10-20); Calcium,Total 9.7 mg/dL (7.6-11.0); Carbon Dioxide 27.3 mmol/L (21.0-32.0); Chloride 103 mmol/L (98-108); Globulin 2.5 g/dL (2.2-4.2); Glucose 95 mg/dL (70-99); Potassium 4.6 mmol/L (3.3-5.1)
[2025-08-15 14:08] LABS: KEPPRA (LEVETIRACETAM) 9.4 ug/mL (10.0-40.0)
== END | disposition home or self-care (01) ==
PROVIDERS: PCP Family Medicine; Referring Provider Family Medicine; Visit Provider Family Medicine
DX: R56.9 Unspecified convulsions (principal)
CPT/HCPCS: 36415; 80053; 80177